=== PATIENT | female | born 1935 | race Caucasian/White ===

== ENCOUNTER 2016-11-29 11:55 | Emergency (ER) | payer MEDICARE, BC ==
[~2016-11-29] VITALS: Ht 154.9 cm; Wt 48.8 kg
[2016-11-29 12:05] VITALS: BP 117/70; PULSE 60; RESP 18; TEMP 97.3; O2SAT 98
[2016-11-29] MEDS ORDERED: POTA-88 PO (12:44)
[2016-11-29] MEDS ORDERED: TRAZ50TA12 PO (12:44)
[2016-11-29] MEDS ORDERED: METO25TA3 PO (12:44)
[2016-11-29] MEDS ORDERED: ACET250T3 PO (12:44)
[2016-11-29] MEDS ORDERED: DOXY100C PO (12:44)
[2016-11-29] MEDS ORDERED: LORA-373 PO (12:44)
[2016-11-29] MEDS ORDERED: RESP: ALBUTEROL 2.5 MG/IPRATROPIUM 0.5 MG NEB (SCH) NEB ONE (13:00)
--- NOTE | 2016-11-29 13:09 | PD ---
HPI Chief Complaint: Cold / Flu Symptoms Time Seen by Provider: 12:47 Travel History International Travel<30 days: No Contact w/Intl Traveler<30days: No Traveled to known affect area: No History of Present Illness HPI 81yo F with PMH of breast CA s/p lobectomy (2007, did not need any chemotherapy ) presents to the ED with c/o cough and nasal congestion for almost 1 week. Denies any fever, chest pain, sob, n/v, abdominal pain. Pt's also has a cough. Took robitussin with some improvement of cough. Denies being a cig smoker but had second hand smoke. PFSH Past Medical History Anxiety: Yes Cancer: Yes (MASTECTOMY) Hypertension: Yes Social History Alcohol Use: No Tobacco Use: No Substance Use: No Allergies-Medications (Allergen,Severity, Reaction): Coded Allergies: No Known Allergies (Unverified , 11/29/16) Reported Meds & Prescriptions Reported Meds & Active Scripts Active Reported Klor-Con M10 (Potassium Chloride Microencaps) 10 Meq Tab 20 Meq PO DAILY Acetazolamide 250 Mg Tab 250 Mg PO QID Lorazepam 0.5 Mg Tab 0.5 Mg PO BID PRN Doxycycline Hyclate 100 Mg Cap 100 Mg PO BID Metoprolol Tartrate 25 Mg Tab 25 Mg PO BID Trazodone (Trazodone HCl) 50 Mg Tab 50 Mg PO HS Review of Systems Except as stated in HPI: all other systems reviewed are Neg Physical Exam Narrative GENERAL: 81yo F not in distress. SKIN: Warm and dry. HEAD: Atraumatic. Normocephalic. EYES: Bilateral corneal implants. ENT: No nasal bleeding or discharge. Mucous membranes pink and moist. Throat clear. NECK: Trachea midline. No JVD. CARDIOVASCULAR: Regular rate and rhythm. No murmur appreciated. RESPIRATORY: No accessory muscle use. End expiratory wheezing on right lower lobe. GASTROINTESTINAL: Abdomen soft, non-tender, nondistended. MUSCULOSKELETAL: No obvious deformities. No clubbing. No cyanosis. No edema. NEUROLOGICAL: Awake and alert. No obvious cranial nerve deficits. Motor grossly within normal limits. Normal speech. PSYCHIATRIC: Appropriate mood and affect; insight and judgment normal.79 Data Data Last Documented VS Vital Signs Date Time Temp Pulse Resp B/P Pulse Ox O2 Delivery O2 Flow Rate FiO2 11/29/16 12:05 97.3 60 18 117/70 98 Orders Chest, Pa & Lat (11/29/16 ) Albuterol-Ipratropium Neb (Duoneb Neb) (11/29/16 13:00) Electrocardiogram (11/29/16 12:57) MDM Medical Decision Making Medical Screen Exam Complete: Yes Emergency Medical Condition: Yes Interpretation(s) Vital Signs Date Time Temp Pulse Resp B/P Pulse Ox O2 Delivery O2 Flow Rate FiO2 11/29/16 12:05 97.3 60 18 117/70 98 EKG: Sinus bradycardia at 57bpm. Borderline RAD. TWI V2, V3. Last Impressions Chest X-Ray 11/29/16 0000 Signed Impressions: Service Date/Time: Tuesday, November 29, 2016 14:04 - CONCLUSION: 1. No acute pulmonary infiltrates 2. Nonspecific cardiomegaly. Marc Martinez MD Differential Diagnosis URI vs. bronchitis vs. Pneumonia Narrative Course 81yo F well appearing F here with c/o cough for about 1 week. Denies any fever , chest pain or sob. Pt is not tachypneic and has mild expiratory wheezing on exam. Pt is not a smoker but had second hand smoke from . Pt given dubneb x1 with improvement of cough. CXR showed no acute pulmonary infiltrate. Pt given 1 dose of prednisone here. Return precautions given. Diagnosis Primary Impression: URI (upper respiratory infection) Qualified Code: J06.9 - Upper respiratory tract infection, unspecified type Patient Instructions: General Instructions Departure Forms: Tests/Procedures Additional Instructions: Please follow up with your PMD in 3-7 days. Return to the ED immediately if you have chest pain, sob, or any other concerning symptoms. Med/Other Pt SpecificInfo: Prescription(s) given Scripts Albuterol 18 GM Inh (Ventolin Hfa 18 GM Inh)90 Mcg/Act Aer2 Puff INH Q4H PRN ( SHORTNESS OF BREATH) #1 INHALER Ref 0 Prov:Agueda Pace DO 11/29/16 Prednisone 20 Mg Tab20 Mg PO BID 3 Days Ref 0 Prov:Agueda Pace DO 11/29/16 Disposition: 01 DISCHARGE HOME Condition: Stable KatelynnAgueda DO Nov 29, 2016 13:09
--- NOTE | 2016-11-29 14:32 | RADHPO ---
EXAM DATE/TIME: 11/29/2016 14:04 [facility] COMPARISON: No previous studies available for comparison. INDICATIONS : Cough, short of breath MEDICAL HISTORY : None. SURGICAL HISTORY : None. ENCOUNTER: Initial ACUITY: 3 days PAIN SCORE: 0/10 LOCATION: Bilateral chest FINDINGS: PA and lateral views of the chest demonstrate the lungs to be symmetrically aerated without evidence of mass, infiltrate or effusion. The heart size is diffusely enlarged.. Osseous structures are inta ct. CONCLUSION: 1. No acute pulmonary infiltrates 2. Nonspecific cardiomegaly. Marc Martinez MD on November 29, 2016 at 14:30 Board Certified Radiologist. This report was verified electronically.
[2016-11-29] MEDS ORDERED: predniSONE 50 MG TAB PO ONE (15:00)
[2016-11-29] MEDS ORDERED: PRED20 PO (15:04)
[2016-11-29] MEDS ORDERED: VENTAER INH (15:04)
--- NOTE | 2016-11-30 11:09 | EKG ---
Date Performed: 11/29/2016 Time Performed: 13:07:24 PTAGE: 81 years EKG: Possible ectopic atrial bradycardia Rightward axis Nonspecific ST changes anteriorly Zhang septal T wave changes may be due to hypertrophy and/or ischemia Abnormal ECG NO PREVIOUS TRACING DOCTOR: James Montes Interpretating Date/Time 11/30/2016 11:08:30
== END 2016-11-29 15:15 | disposition home or self-care (01) ==
LOC: EDBD → PHEFT 11:55
DX: J06.9 Acute upper respiratory infection, unspecified (principal); R94.31 Abnormal electrocardiogram [ECG] [EKG]; I10 Essential (primary) hypertension; Z77.22 Contact with and (suspected) exposure to environmental tobacco smoke (acute) (chronic); Z85.3 Personal history of malignant neoplasm of breast
CPT/HCPCS: 71020; 93005; 94664; 99283

== ENCOUNTER 2016-12-04 11:26 | Emergency (ER) | payer MEDICARE, BC ==
[~2016-12-04] VITALS: Ht 154.9 cm; Wt 50.0 kg
[~2016-12-04 11:26] MED LIST: ACET250T3 PO; DOXY100C PO; LORA-373 PO; METO25TA3 PO; POTA-88 PO; PRED20 PO; TRAZ50TA12 PO; VENTAER INH
[2016-12-04 11:42] VITALS: BP 93/60; PULSE 57; RESP 16; TEMP 97.8; O2SAT 98
--- NOTE | 2016-12-04 12:09 | PD ---
HPI Chief Complaint: Dizziness Time Seen by Provider: 11:56 Travel History International Travel<30 days: No Contact w/Intl Traveler<30days: No Traveled to known affect area: No History of Present Illness HPI The patient was seen and examined in the presence of the nurse. This patient was apparently at baseline this morning other than cough cold symptoms. She took a single dose of plain Robitussin cough syrup and 30 minutes later started acting bizarre. She is confused and has some atypical lipsmacking movements. No injury. She says that she is fine but clearly is acting oddly. Severity of symptoms is moderate. Duration 1 hour. No alleviating factors. PFSH Past Medical History Anxiety: Yes Cancer: Yes (MASTECTOMY) Hypertension: Yes ?: Not Social History Alcohol Use: No Tobacco Use: No Substance Use: No Allergies-Medications (Allergen,Severity, Reaction): Coded Allergies: No Known Allergies (Unverified , 12/04/16) Reported Meds & Prescriptions Reported Meds & Active Scripts Active K-Tab (Potassium Chloride) 20 Meq Tab 60 Meq PO DAILY Ventolin Hfa 18 GM Inh (Albuterol Sulfate) 90 Mcg/Act Aer 2 Puff INH Q4H PRN Reported [Robitusssin Max] 5 Ml PO Q6HR PRN Klor-Con M10 (Potassium Chloride Microencaps) 10 Meq Tab 20 Meq PO DAILY Acetazolamide 250 Mg Tab 250 Mg PO QID Lorazepam 0.5 Mg Tab 0.5 Mg PO BID PRN Doxycycline Hyclate 100 Mg Cap 100 Mg PO BID Metoprolol Tartrate 25 Mg Tab 25 Mg PO BID Trazodone (Trazodone HCl) 50 Mg Tab 50 Mg PO HS Review of Systems General / Constitutional: No: Fever Eyes: No: Visual changes HENT: No: Headaches Cardiovascular: No: Chest Pain or Discomfort Respiratory: No: Shortness of Breath Gastrointestinal: No: Abdominal Pain Genitourinary: No: Dysuria Musculoskeletal: Positive: Weakness, No: Pain Skin: No Rash Neurologic: Positive: Weakness, Change in Mentation Psychiatric: No: Depression Endocrine: No: Polydipsia Hematologic/Lymphatic: No: Easy Bruising Physical Exam Narrative GENERAL: Thin elderly well-developed patient who is confused. SKIN: Warm and dry. HEAD: Atraumatic. Normocephalic. EYES: Pupils equal and round. No scleral icterus. No injection or drainage. ENT: No nasal bleeding or discharge. Mucous membranes pink and moist. NECK: Trachea midline. No JVD. CARDIOVASCULAR: Regular rate and rhythm. No murmur appreciated. RESPIRATORY: No accessory muscle use. Clear to auscultation. Breath sounds equal bilaterally. GASTROINTESTINAL: Abdomen soft, non-tender, nondistended. Hepatic and splenic margins not palpable. MUSCULOSKELETAL: No obvious deformities. No clubbing. No cyanosis. No edema. NEUROLOGICAL: Awake and alert. No obvious cranial nerve deficits. Motor grossly within normal limits. Difficult to understand speech. Follows commands PSYCHIATRIC: Frustrated and anxious mood and affect; insight and judgment poor. Data Data Last Documented VS Vital Signs Date Time Temp Pulse Resp B/P Pulse Ox O2 Delivery O2 Flow Rate FiO2 12/04/16 14:04 56 98 Room Air 12/04/16 13:44 111/63 12/04/16 11:42 97.8 16 Orders Basic Metabolic Panel (Bmp) (12/04/16 12:02) Complete Blood Count With Diff (12/04/16 12:02) Urinalysis - C+S If Indicated (12/04/16 12:02) Ct Brain W/O Iv Contrast(Rout) (12/04/16 12:02) Ecg Monitoring (12/04/16 12:02) Iv Access Insert/Monitor (12/04/16 12:02) Cath For Specimen (12/04/16 12:02) Oximetry (12/04/16 12:02) Sodium Chloride 0.9% Flush (Ns Flush) (12/04/16 12:15) Diphenhydramine Inj (Benadryl Inj) (12/04/16 12:15) Labs Laboratory Tests Test 12/04/16 12/04/16 12:14 12:25 White Blood Count 9.3 TH/MM3 Red Blood Count 5.20 MIL/MM3 Hemoglobin 15.3 GM/DL Hematocrit 45.7 % Mean Corpuscular Volume 87.8 FL Mean Corpuscular Hemoglobin 29.4 PG Mean Corpuscular Hemoglobin 33.5 % Concent Red Cell Distribution Width 12.6 % Platelet Count 240 TH/MM3 Mean Platelet Volume 8.9 FL Neutrophils (%) (Auto) 70.0 % Lymphocytes (%) (Auto) 12.9 % Monocytes (%) (Auto) 15.7 % Eosinophils (%) (Auto) 0.9 % Basophils (%) (Auto) 0.5 % Neutrophils # (Auto) 6.5 TH/MM3 Lymphocytes # (Auto) 1.2 TH/MM3 Monocytes # (Auto) 1.5 TH/MM3 Eosinophils # (Auto) 0.1 TH/MM3 Basophils # (Auto) 0.0 TH/MM3 CBC Comment DIFF FINAL Differential Comment Sodium Level 140 MEQ/L Potassium Level 3.1 MEQ/L Chloride Level 107 MEQ/L Carbon Dioxide Level 23.2 MEQ/L Anion Gap 10 MEQ/L Blood Urea Nitrogen 17 MG/DL Creatinine 0.93 MG/DL Estimat Glomerular Filtration 58 ML/MIN Rate Random Glucose 116 MG/DL Calcium Level 7.8 MG/DL Urine Collection Type CLEAN CATCH Urine Color YELLOW Urine Turbidity 1.035 Urine pH 5.5 Urine Protein TRACE mg/dL Urine Glucose (UA) NEG mg/dL Urine Ketones TRACE mg/dL Urine Occult Blood NEG Urine Nitrite NEG Urine Bilirubin NEG Urine Leukocyte Esterase NEG Urine WBC 0-2 /hpf Urine Squamous Epithelial 0-5 /hpf Cells Urine Bacteria FEW /hpf Urine Mucus FEW /lpf Microscopic Urinalysis Comment CULT NOT INDICATED Urine Collection Time 12:25 [facility] Medical Decision Making Medical Screen Exam Complete: Yes Emergency Medical Condition: Yes Medical Record Reviewed: Yes Differential Diagnosis Dystonic reaction, CVA, electrolyte abnormality, medication side effect Narrative Course I have reviewed the patient's electronic medical record. IV placed CBC is normal Metabolic profile is normal other than hypokalemia which I'm replacing orally on prescription Urinalysis is clean Brain CT is normal I gave her dose of 12.5 mg IV Benadryl Given her alteration in mental status with lipsmacking involuntary movements I was most suspicious of dystonic reaction although I wouldn't expect this to Robitussin. She does not take antipsychotics. Takes trazodone for depression but not a new prescription. I observed her for a long time. 4+ hours. She steadily slowly seemed to improve. No more lipsmacking or involuntary movements. She is not readily understandable when she speaks. We ambulated her in the department states that she is very close to baseline He would like to go home. They're planning to fly home tomorrow Recommend primary care follow-up and avoidance of cough syrups. Discuss further workup options with primary physician Diagnosis Primary Impression: Toxic encephalopathy Additional Impression: Acute dystonic reaction due to drugs Additional Instructions: The patient was advised to follow up with their physician and return if they worsen. Med/Other Pt SpecificInfo: Prescription(s) given Scripts Potassium Chloride ER (K-Tab)20 Meq Tab60 Meq PO DAILY #3 TAB Ref 0 Prov:Alistair Booker MD 12/04/16 Disposition: 01 DISCHARGE HOME Condition: Stable Alistair Booker MD Dec 04, 2016 12:09
[2016-12-04] MEDS ORDERED: diphenhydrAMINE HCL 50 MG/ML VIAL IV PUSH ONE (12:15)
[2016-12-04] MEDS ORDERED: SODIUM CHLORIDE 0.9% FLUSH 5 ML FLUSH IVF PRN (12:15)
[2016-12-04 12:33] LABS: AUTOMATED NEUTROPHIL # 6.5 TH/MM3 (1.8-7.7); BASOPHIL % 0.5 % (0.0-2.0); EOSINOPHIL # 0.1 TH/MM3 (0-0.4); EOSINOPHIL % 0.9 % (0.0-4.0); HEMATOCRIT 45.7 % (35.0-46.0); LYMPH % 12.9 % (9.0-44.0); LYMPHOCYTE # 1.2 TH/MM3 (1.0-4.8); MEAN CELL VOLUME 87.8 FL (80.0-100.0); MEAN CORPUSCULAR HEMOGLOBIN 29.4 PG (27.0-34.0); MEAN CORPUSCULAR HGB CONC 33.5 % (32.0-36.0); MONO % 15.7 % (0.0-8.0); PLATELET COUNT 240 TH/MM3 (150-450); RED CELL DISTRIBUTION WIDTH 12.6 % (11.6-17.2); WHITE BLOOD COUNT 9.3 TH/MM3 (4.0-11.0)
[2016-12-04 12:36] LABS: BLOOD, URINE NEG (NEG); GLUCOSE,URINE NEG (NEG); KETONE, URINE TRACE mg/dL (NEG); NITRITE,URINE NEG (NEG); PH, URINE 5.5 (5.0-8.5)
[2016-12-04 12:37] LABS: HEMO FLAGS DIFF FINAL
[2016-12-04 12:40] LABS: POTASSIUM 3.1 MEQ/L (3.5-5.1)
[2016-12-04 12:44] LABS: BICARBONATE 23.2 MEQ/L (21.0-32.0)
[2016-12-04 12:45] LABS: METHOD OF COLLECTION CLEAN CATCH; URINE COLOR YELLOW (YELLW/STRAW)
[2016-12-04 12:46] LABS: BACTERIA, URINE FEW /hpf; COMMENT (UR) CULT NOT INDICATED; CULTURE IF INDICATED CULT NOT INDICATED; MUCUS URINE FEW /lpf (OCC); SQUAMOUS EPITHELIAL CELL URINE 0-5 /hpf (0-5); WBC, URINE 0-2 /hpf (0-5)
[2016-12-04] MEDS ORDERED: [UNRECOGNIZED DRUG - OTHER] PO (12:54)
--- NOTE | 2016-12-04 13:03 | RADHPO ---
EXAM DATE/TIME: 12/04/2016 12:45 [facility] COMPARISON: No previous studies available for comparison. INDICATIONS : Altered mental status. RADIATION DOSE: 63.28 CTDIvol (mGy) MEDICAL HISTORY : Hypertension. Carcinoma, breast. SURGICAL HISTORY : Mastectomy. ENCOUNTER: Initial ACUITY: 1 day PAIN SCALE: 4/10 LOCATION: cranial TECHNIQUE: Multiple contiguous axial images were obtained of the head. Using automated exposure control and adj ustment of the mA and/or kV according to patient size, radiation dose was kept as low as reasonably a chievable to obtain optimal diagnostic quality images. FINDINGS: CEREBRUM: The ventricles are normal for age. No evidence of midline shift, mass lesion, hemorrhage or acute in farction. No extra-axial fluid collections are seen. POSTERIOR FOSSA: The cerebellum and brainstem are intact. The 4th ventricle is midline. The cerebellopontine angle i s unremarkable. EXTRACRANIAL: The visualized portion of the orbits is intact. SKULL: The calvaria is intact. No evidence of skull fracture. CONCLUSION: Unremarkable exam for age. Aidan Patrick MD on December 04, 2016 at 12:59 Board Certified Radiologist. This report was verified electronically.
[2016-12-04 13:44] VITALS: BP 111/63; PULSE 56; O2SAT 97
[2016-12-04 13:49] VITALS: O2SAT 97
[2016-12-04] MEDS ORDERED: POTA1TAB4 PO (16:40)
== END 2016-12-04 17:01 | disposition home or self-care (01) ==
LOC: PHED 11:26
DX: G92 Toxic encephalopathy (principal); T48.4X5A Adverse effect of expectorants, initial encounter; R05 Cough
CPT/HCPCS: 70450; 80048; 81001; 85025; 96374; 99285; J1200; P9612